=== PATIENT | female | born 1955 | race Caucasian/White ===

== ENCOUNTER 2024-01-31 09:59 | Emergency (ER) | payer MEDICARE, SELFPAY ==
[2024-01-31 10:01] VITALS: BP 160/89
--- NOTE | 2024-01-31 10:49 | ED.GENMED ---
History of Present Illness
General
Chief Complaint: Abdominal Symptoms
Time Seen by Provider: 01/31/24 10:10
History of Present Illness
History of Present Illness:
68-year-old female presents to the emergency department for evaluation of left chest wall pain sustained after a mechanical fall 3 days ago. I do not have side, states she will not strike the chest or anything in particular. Pain is not pleuritic,
it is worse with overhead reaching or with torso rotation. Requires use of crutches/neuropathy ambulatory dysfunction left lower extremity reports crutch use makes pain worse.
Past History
Past History
ED Past Medical History: None
ED Past Surgical History: None
Review of Systems
Review of Systems
Allergies reviewed?: Yes
All Other Systems: ROS reviewed and negative except as documented in HPI and ROS
Phy Exam
Physical Exam
Physical Exam:
GEN: Well appearing, NAD, WDWN
HEENT: Oral mucosa moist, no scleral icterus
Cardiac: Regular rate and rhythm, no murmurs
Lung: No respiratory distress, no tachypnea, lungs clear to auscultation bilaterally
Chest: No gross chest wall deformity, no ecchymosis, mildly tender to the anterior ribs inferior to the breast
MSK: No gross deformity or injuries
Skin: Good color, no pallor or jaundice, no rashes
Neuro: AO x3, moves all extremities freely
Psych: Calm, cooperative
Course
Orders/Labs/Results
Orders:
Orders
01/31/24 10:06
EKG [Electrocardiogram (*1)] Urgent
Reason for Study: Chest Pain
01/31/24 10:07
EKG- Treatment ONCE
01/31/24 10:27
CR Ribs-left 3 Vw W/pa Chest Urgent
Comment:
Reason For Exam: L chest wall injury
Vital Signs
Initial and Last Documented VS:
Initial Vital Signs
Temp Pulse Resp BP Pulse Ox
98.6 F 100 18 160/89 100
01/31/24 10:01 01/31/24 10:01 01/31/24 10:01 01/31/24 10:01 01/31/24 10:01
Last Documented Vital Signs
Temp Pulse Resp BP Pulse Ox
98.6 F 100 18 160/89 100
01/31/24 10:01 01/31/24 10:01 01/31/24 10:01 01/31/24 10:01 01/31/24 10:01
MDM/Problems Addressed
MDM/Problems Addressed:
X-rays grossly unremarkable, no findings concerning for pulmonary contusion or rib fracture. Discussed supportive care
*Critical Care Note
Total Time (30-74mins, 75-104mins- exclusive of procedures): Not Applicable
ED Attending Note
-
Portions of this chart may have been created with voice recognition software.� Occasional wrong word or��sound alike� substitutions may have occurred due to the inherent limitations of voice recognition software.
Discharge Plan
Departure
Patient Disposition: Home (Routine Discharge)
Date of Disposition: 01/31/24
Time of Disposition: 10:49
Patient with high blood pressure during this ER visit?: No
Discharge Problem:
Chest wall muscle strain
Instructions: Bruised Rib (DC)
Prescriptions:
No Action
cyanocobalamin (vitamin B-12) 1,000 mcg/mL Solution
100 mcg IM DIRECTED
Rx Instructions:
Q10 days
multivitamin Tablet
1 tab PO DAILY
acetaminophen [acetaminophen] 325 mg tablet
650 mg PO Q6HPRN PRN (Reason: mild pain) Qty: 14 0RF
tramadol 50 mg tablet
25 mg PO Q6HPRN PRN (Reason: severe pain/breakthrough pain) Qty: 8 0RF
ibuprofen 600 mg tablet
600 mg PO Q6H PRN (Reason: pain) Qty: 14 0RF
Activity Restrictions/Additional Instructions:
Tylenol and/or ibuprofen for pain
Topical lidocaine patches (Salonpas) can help as well
Interventions
Interventions:
*Risk Screen - Suicide Last Done: 01/31/24 10:01
*General Assessment Last Done: 01/31/24 10:01
*Neglect/Abuse Screening Last Done: 01/31/24 10:01
*ED COVID-19 Vaccine History Last Done: 01/31/24 10:01
*Nursing Disposition Last Done: 01/31/24 10:50
Discharge Date and Time
Print Language: BULGARIAN
== END 2024-01-31 10:50 | disposition home or self-care (01) ==
LOC: EMR 09:59
PROVIDERS: EMERGENCY PHYSICIAN Student in an Organized Health Care Education/Training Program; FAMILY PHYSICIAN Family Medicine
DX: S29.011A Strain of muscle and tendon of front wall of thorax, initial encounter (principal); W19.XXXA Unspecified fall, initial encounter; G62.9 Polyneuropathy, unspecified
CPT/HCPCS: 99283; 71101; 93005

== ENCOUNTER 2024-08-25 06:23 | Day surgery (SDC) | payer MEDICARE, SELFPAY | END 2024-08-25 11:20 | disposition home or self-care (01) | LOC: GI 06:23 | PROVIDERS: ATTENDING PHYSICIAN Internal Medicine Gastroenterology | DX: Z12.11 Encounter for screening for malignant neoplasm of colon (principal); D12.2 Benign neoplasm of ascending colon; K55.20 Angiodysplasia of colon without hemorrhage; K64.8 Other hemorrhoids; Z85.038 Personal history of other malignant neoplasm of large intestine; Z98.0 Intestinal bypass and anastomosis status; Z98.890 Other specified postprocedural states | CPT/HCPCS: 45385; 88305 ==